=== PATIENT | male | born 1945 | race Two or more races ===

== ENCOUNTER 2022-05-08 20:34 | Outpatient (CLI) | payer MEDICARE, BC | END 2022-05-08 20:35 | disposition home or self-care (01) | LOC: SC 20:34 | PROVIDERS: ATTEND Nurse Practitioner Family | DX: G47.33 Obstructive sleep apnea (adult) (pediatric) (principal); G47.61 Periodic limb movement disorder | CPT/HCPCS: 95810 ==

== ENCOUNTER 2022-05-16 09:53 | Outpatient (CLI) | payer MEDICARE, BC ==
[2022-05-16 10:37] VITALS: BP 129/81
--- NOTE | 2022-05-16 10:37 | SLEEP CARE CONSULTATION ---
Information from patient questionnaire entered by Keerthi Gotti MA. I have reviewed and concur with the information entered by Keerthi Gotti MA. This document represents the service I personally performed and the decisions made by , Anastasiya Drummond ARNP. History of Present Illness Service Date and Time: 05/16/2022 0953 Accompanied by: daughter Initial [place] Sleepiness Scale score: 4 (04/25/2022) Current [place] Sleepiness Scale score: 3 (05/16/2022) Additional HPI information: GAETANO SINGLETARY returns for follow up with daughter Jolynn and results of the recently performed polysomnography. I explained the pathophysiology behind obstructive sleep apnea. We then spent quite a bit of time discussing different treatment options. For mild obstructive sleep apnea, surgery and oral appliance are alternatives to nasal CPAP therapy but in moderate or severe cases, nasal CPAP is the most effective and reliable treatment. Because apnea is primarily in supine position, then positional management ther apy could be effective. Methods discussed such as positioning with pillows to prevent supine sleep. I reviewed the impact of weight changes on sleep apnea and strongly recommended losing weight. After some discussion, the patient opted to go with the nasal CPAP therapy. Nasal autoCPAP set at 4-15 cmH20 will be ordered with rationale explained. A manual titration study will be ordered if unable to find optimal pressure with office adjustments. I explained how CPAP machine works and what to expect when using the machine. Using CPAP every night in order to get used to it was emphasized. Patient advised to put CPAP mask on before getting into bed so as not to fall asleep without CPAP. To assist acclimation to CPAP use, it could also be used for a short time during day while reading or watching TV. The patient was instructed to call the CPAP supplier to discuss any mechanical problem that may occur. If the mask given is uncomfortable or is difficult to keep on through the night even with adjustment, contact the CPAP supplier as many will replace with another mask style if notified before 30 days. If snoring or perceives is not getting enough air or too much air from the machine, notify this office. Patient counseled not drink alcohol less than 4 hours before bedtime as it can increase snoring and apnea. Patient was cautioned about risks of drowsy driving until sleepiness symptoms resolve. Sleep Study - Results Type of Sleep Study: Polysomnography (F/U POLY, 05/08/[address] [facility], POS,) Prior sleep studies: Yes Year and Where: has had 3 different studies over 20 years ago Polysomnography/Home Sleep Study results: IMPRESSION: The quality of the study is good. The patient had normal sleep efficiency. The sleep architecture was abnormal for sleep fragmentation and reduced amount of time spent in slow wave sleep (N3). Respiratory monitoring showed moderate obstructive sleep apnea-hypopnea (AHI = 21.9) associated with frequent arousals, oxyhemoglobin desaturation and mild hypoxia (kevin oxygen saturation of 85%). The patient did not sleep supine during this study. Snore was moderate to loud in intensity. There was moderate periodic leg movement of sleep contributing to the sleep fragmentation. Cardiac rhythm was normal sinus rhythm with occasional premature atrial contractions. No abnormal behavior (parasomnia) observed during the night. Allergies and Home Medications Known drug allergies: No (NKA) Drug allergies reviewed: Yes Home medication list reviewed: Yes (compounded testosterone) Allergy and home medication list: NKA VERIFIED BY Hina GOTTI, 05/16/2022 1000 Review of Systems Review of systems same as previous: No (Cubital tunnel syndrome) Physical Exam Vital signs obtained and entered by: Hina GOTTI CMA AAAZ Blood Pressure: 129/81 (R18, P68, RIGHT) Cuff size: wrist Heart Rate: 67 O2 Saturation: 96 (N95) Height: 5 ft 8 in Weight: 179 lb (CLOTHES) Body Mass Index: 27.2 BMI Classification: Overweight Neck circumference: 14 (INCHES) Impression and Plan 1. Obstructive Sleep Apnea-Hypopnea Syndrome, moderate, with lowest oxygen saturation of 85%. Obviously this is the cause of the patients symptoms of unrefreshed sleep, and excessive daytime sleepiness. Positive pressure therapy could benefit hypertension and cardiac disease (CHD). As mentioned above, the p atient will be started on nasal autoCPAP therapy with pressure set at 4-15 cmH2 O. Compliance guidelines also reviewed. A copy of compliance guidelines will be given for reference at check out. 2. Periodic limb movement, moderate, that did not fragment patients sleep. Periodic limb movement of sleep (PLMS) is characterized by episodes of repetitive limb movements that occur during sleep and usually involve the lower limbs. The etiology is unknown. Caffeine can aggravate PLMS and should be avoided. Sleep hygiene methods can also improve sleep as well as lifestyle roseline nges such as regular exercise. Patient was advised that no treatment is needed at this time. If symptoms increase, then further evaluation is indicated. * Nasal auto CPAP therapy, pressure at 4-15 cm H2O. * Attempt to lose weight. * Avoid alcohol consumption near bedtime. * Avoid supine sleep until using CPAP. * The patient is again cautioned about driving until sleepiness completely resolves. * Return one month after CPAP obtained. I will assess response to therapy and compliance at that time. Counseling Topics: Weight loss health impact Visit Type: In Office Time Spent with Patient (minutes): 28 Provider Statement: I spent 100% of the Face to Face Visit with the patient with greater than 50% spent counseling the patient and coordination of care.
== END 2022-05-16 09:54 | disposition home or self-care (01) ==
LOC: SC 09:53
PROVIDERS: ATTEND Nurse Practitioner Family
DX: G47.33 Obstructive sleep apnea (adult) (pediatric) (principal); G47.61 Periodic limb movement disorder; E66.3 Overweight; Z68.27 Body mass index [BMI] 27.0-27.9, adult
CPT/HCPCS: 99213; G0463; 99212

== ENCOUNTER 2022-10-15 09:58 | Outpatient (CLI) | payer MEDICARE, BC ==
--- NOTE | 2022-10-15 11:04 | SLEEP CARE CONSULTATION ---
Information from patient questionnaire entered by Debora Hancock. I have reviewed and concur with the information entered by Debora Hancock. This document represents the service I personally performed and the decisions made by me, Anastasiya Drummond ARNP. History of Present Illness Service Date and Time: 10/15/2022 0958 Previous diagnosis: Moderate, Obstructive Sleep Apnea-Hypopnea Syndrome AHI: 21.9 Reason for follow up: first compliance (SET UP 06/21/2022) Equipment type: CPAP (RESMED Airsense 10, s/u 06/2022; SD NEEDED FOR DOWNLOAD AND FOR CHANGES) Equipment obtained from: [employer] Mask style: Nasal pillows Mask brand: Resmed Backup mask available: Yes (old mask) Prior sleep studies: Yes Year and Where: has had 3 different studies over 20 years ago Type of Sleep Study: Polysomnography (F/U POLY, 05/08/2022 [facility], POS,) HPI additional information: GAETANO SINGLETARY was diagnosed to have moderate, AHI 21.9, obstructive sleep apnea-hypopnea syndrome and returned today for CPAP therapy first compliance follow-up. Sleep Study - Results Type of Sleep Study: Polysomnography (F/U POLY, 05/08/2022 [facility], POS,) Prior sleep studies: Yes Year and Where: has had 3 different studies over 20 years ago CPAP Compliance Data - Data Reviewed with Patient Average duration of nightly device use: 5 hours 45 minutes Compliance rate %: 58 (68/90 days used) Current pressure setting (cmH2O): 4-18 (median 10.5, avg 14.4, max 15.4) Average residual AHI: 21.7 Central apnea: 5.4 Obstructive apnea: 8.3 Hypopnea: 2.7 Subjective Missed days of use due to: reports: illness (sinus surgery, could not use CPAP for 2 weeks) Patient concerns: reports: mask leak noise, dry mouth, nose, throat, other (waking up several times a night, unknown reasons). denies: aerophagia, mask discomfort, air blowing in eyes, condensation in mask/hose, nasal congestion, epistaxis Observed to snore while using device: No Current pressure setting perceived as: comfortable On therapy, patient: reports: drowsiness while driving, other (having too many wakeups to get better sleep.) Initial [place] Sleepiness Scale score: 4 (04/25/2022) Current [place] Sleepiness Scale score: 11 (10/15/22) Allergies and Home Medications Drug allergies reviewed: Yes (NKDA) Home medication list reviewed: Yes (Melatonin) Review of Systems Review of systems same as previous: No (Cubital Tunnel syndrome, R & L; sinus surgery) Physical Exam Vital signs obtained and entered by: DEBORA Corona MA Blood Pressure: 124/78 (LEFT ARM) Cuff size: regular Heart Rate: 95 O2 Saturation: 97 Height: 5 ft 8 in Weight: 189 lb 6.4 oz Body Mass Index: 28.8 BMI Classification: Overweight Impression and Plan 1. Obstructive Sleep Apnea-Hypopnea Syndrome, moderate, with fair treatment compliance and poor apnea control. Patient comes in very concerned that he is still waking up several times at night when using the CPAP. He states he had to have sinus surgery and was unable to use his CPAP for 2 weeks while he was healing and he was able to sleep through the night. He restarted using his CPAP and started waking up again 4-5 times a night. Patient states he just wants to be able to maintain sleep 2-3 nights a week. I reviewed his therapy data and it shows an elevated AHI at 21.7 which is not much different than his original AHI at his sleep study done in 2020. He did not return for compliance follow-up after being set up with the CPAP. Obviously, he is not getting significant improvement of his sleep apnea on the CPAP machine according to his therapy rep ort. The patients pressure will be changed to autoCPAP 12-20 cmH20 for elevation of residual AHI. Patient advised to contact me if pressure change is uncomfortable so that it can be adjusted. Goals for apnea control discussed. I also discussed with patient the possibility of doing a titration study, if we are not able to adjust pressures well enough to control his sleep apnea. He voiced understanding but does not want to go through another study at this time. Patient's apnea severity and rationale for treatment to reduce apnea, improve sleep quality and reduce cardiovascular and cerebrovascular events was reviewed. I also reviewed the benefit of consistent device use of CPAP for hypertension and cardiac disease (CHD). 2. Overweight, unspecified. Currently patients BMI is 28.8. Obesity increases the risk of apnea, CPAP pressure requirements and overall health risks especially cardiovascular and diabetes. Thus patient is advised to lose weight. 3. Insomnia, sleep maintenance. Patient states he regularly is multiple wake ups at night. He is able to go to sleep within a few minutes but then will wake up 4-5 times a night. In order to help him to get better night sleep, we are going to trial a Zolpidem 5 mg a few nights a week while we adjust his pressure to improve overall residual AHI. He was instructed not to take with his Seroquel with this medication since this is also a [employer] depressant. We adverse reactions to medications and when to stop taking them. He voiced understanding of instructions. * Change auto CPAP pressure to 12-20 cmH2O * Zolpidem 5 mg, prn nightly for sleep * Notify me if snoring with mask or feeling that the pressure is too much or too little * Attempt to lose weight * Call this office if any problems using CPAP * Return for follow up in 1-2 months, or sooner if concerns arise Counseling Topics: Spare mask, Weight loss health impact Visit Type: In Office Time Spent with Patient (minutes): 26 Provider Statement: I spent 100% of the Face to Face Visit with the patient with greater than 50% spent counseling the patient and coordination of care.
[2022-10-15 11:05] VITALS: BP 124/78
== END 2022-10-15 09:59 | disposition home or self-care (01) ==
LOC: SC 09:58
PROVIDERS: ATTEND Nurse Practitioner Family
DX: G47.33 Obstructive sleep apnea (adult) (pediatric) (principal); E66.3 Overweight; Z68.28 Body mass index [BMI] 28.0-28.9, adult; G47.00 Insomnia, unspecified
CPT/HCPCS: 99213; G0463; 99212

== ENCOUNTER 2022-11-27 13:18 | Outpatient (CLI) | payer MEDICARE, BC ==
--- NOTE | 2022-11-27 14:06 | SLEEP CARE CONSULTATION ---
Information from patient questionnaire entered by Debora Hancock. I have reviewed and concur with the information entered by Debora Hancock. This document represents the service I personally performed and the decisions made by , Anastasiya Drummond ARNP. History of Present Illness Service Date and Time: 11/27/2022 1318 Previous diagnosis: Moderate, Obstructive Sleep Apnea-Hypopnea Syndrome AHI: 21.9 Reason for follow up: other (SIX WEEK F/U) Equipment type: CPAP (RESMED Airsense 10, s/u 06/2022; SD NEEDED FOR DOWNLOAD AND FOR CHANGES) Equipment obtained from: Other ([employer], as needed) Mask style: Nasal pillows Backup mask available: No (has extra pillows but not mask) Last cushion change: 2 weeks Prior sleep studies: Yes Year and Where: has had 3 different studies over 20 years ago Type of Sleep Study: Polysomnography (F/U POLY, 05/08/2022 [facility], POS,) HPI additional information: GAETANO SINGLETARY was diagnosed to have moderate, AHI 21.9, obstructive sleep apnea-hypopnea syndrome and returned today for CPAP therapy six weeks follow-up. Sleep Study - Results Type of Sleep Study: Polysomnography (F/U POLY, 05/08/2022 [facility], POS,) Prior sleep studies: Yes Year and Where: has had 3 different studies over 20 years ago CPAP Compliance Data - Data Reviewed with Patient Average duration of nightly device use: 4 hours 37 minutes Compliance rate %: 57 Current pressure setting (cmH2O): 12-20 Average residual AHI: 18.8 (unknown 6.9) Central apnea: 4.0 Obstructive apnea: 5.2 Hypopnea: 2.6 Compliance data discussion: He states that he only sleeps for about 2 hours, the rest of the time in the mask he is awake. Subjective Missed days of use due to: reports: other (insomnia) Patient concerns: reports: mask leak noise, dry mouth, nose, throat (dry mouth). denies: aerophagia, mask discomfort, air blowing in eyes, condensation in mask/hose, nasal congestion, epistaxis Observed to snore while using device: No Current pressure setting perceived as: comfortable On therapy, patient: reports: other (not feeling like he is sleeping better with CPAP) Initial [place] Sleepiness Scale score: 4 (04/25/2022) Current [place] Sleepiness Scale score: 7 (11/27/22) Allergies and Home Medications Known drug allergies: No Drug allergies reviewed: Yes Home medication list reviewed: Yes (Ambien 5 mg, prn ) Review of Systems Review of systems same as previous: Yes (no changes) Physical Exam Vital signs obtained and entered by: DEBORA Corona MA Blood Pressure: 110/70 (LEFT ARM) Cuff size: regular Heart Rate: 63 O2 Saturation: 96 Height: 5 ft 8 in Weight: 191 lb 12.8 oz Body Mass Index: 29.1 BMI Classification: Overweight Impression and Plan 1. Obstructive Sleep Apnea-Hypopnea Syndrome, moderate, with fair treatment compliance and fair apnea control with elevated residual AHI. On CPAP therapy, the patient does not feel he gets better sleep, he thinks he sleeps better without it. He is still more concerned about getting more sleep at night. He wears the CPAP because it makes his daughter happy. He has an elevated residual AHI as well with his pressure setting at 12-20 cmH2O. We discussed and agreed upon a titration study to see if we can find pressure setting that will adequately control his sleep apnea. He agreed to go to [facility] since we do not have titration machines in our sleep lab currently. I will follow up with him after the study. Patient's apnea severity and rationale for treatment to reduce apnea, improve sleep quality and reduce cardiovascular and cerebrovascular events was reviewed. I also reviewed the benefit of consistent device use of CPAP for hypertension and cardiac disease (CHD). 2. Overweight, unspecified. Currently patients BMI is 29.1. Obesity increases the risk of apnea, CPAP pressure requirements and overall health risks especially cardiovascular and diabetes. Thus patient is advised to lose weight. 3. Insomnia, sleep maintenance. He tried the 5 mg Ambien with little improvement of his sleep. He increased his dose to 10 mg and did get one night with 5-6 hours of sleep but feels he might need a stronger dose because he was not able to sleep more than 2-3 hours since then. I will change his prescription to Ambien ER 12.5 mg to see if this will help him maintain sleep for longer periods of time. He has not been having any adverse effects from the medication. * Continue auto CPAP pressure at 12-20 cmH2O * Titration study * Ambien ER 12.5 mg, nightly, prn for sleep * Notify me if snoring with mask or feeling that the pressure is too much or too little * Attempt to lose weight * Call this office if any problems using CPAP * Return for follow up after titration study, or sooner if concerns arise Counseling Topics: Spare mask, Weight loss health impact Visit Type: In Office Time Spent with Patient (minutes): 22 Provider Statement: I spent 100% of the Face to Face Visit with the patient with greater than 50% spent counseling the patient and coordination of care.
[2022-11-27 14:23] VITALS: BP 110/70
== END 2022-11-27 13:19 | disposition home or self-care (01) ==
LOC: SC 13:18
PROVIDERS: ATTEND Nurse Practitioner Family
DX: G47.33 Obstructive sleep apnea (adult) (pediatric) (principal); E66.3 Overweight; Z68.29 Body mass index [BMI] 29.0-29.9, adult
CPT/HCPCS: 99213; G0463; 99212

== ENCOUNTER 2023-02-12 14:29 | Outpatient (CLI) | payer MEDICARE, BC ==
--- NOTE | 2023-02-12 14:25 | SLEEP CARE CONSULTATION ---
Information from patient questionnaire entered by Allyssa Hancock. I have reviewed and concur with the information entered by Allyssa Hancock. This document represents the service I personally performed and the decisions made by , Anastasiya Drummond ARNP. History of Present Illness Service Date and Time: 02/12/2023 1400 Initial [place] Sleepiness Scale score: 4 (04/25/2022) Current [place] Sleepiness Scale score: 5 (02/12/23) Additional HPI information: GAETANO SINGLETARY returns via telehealth visit for follow up of the sleep study with a manual CPAP titration study performed on 01/08/2023. The patient was informed of the following polysomnography findings: CPAP pressure at 12 cmH20 is almost adequate to control his sleep apnea. Sleep Study - Results Type of Sleep Study: Polysomnography (TITRATION STUDY F/U) Prior sleep studies: Yes Year and Where: has had 3 different studies over 20 years ago Polysomnography/Home Sleep Study results: IMPRESSION: The quality of the study is good. CPAP was initiated at S cmH20 and titrated up to CPAP at 12 cmH20. CPAP at 12 cmH10 appeared to be almost adequate (AHi of 8.6 per hour on the pressure), There was REM sleep on the pressure. The patient did not sleep supine during this study. Oxygen saturation was minimally low. Lower CPAP settings allowed more frequent residual rospiratory events. The patient appeared to have tolerated positive airway pressure therapy fairly well. The patient's sleep efficiency was reduced due to prolonged awakenings in the first half of the night. The sleep architecture was abnormal for sleep fragmentation and lack of slow wave sleep. There was no significant periodic leg movement of sleep. Cardiac rhythm was normal sinus rhythm without significant arrhythmia. No abnonnal behavior (parasomnia) observed during the night. Allergies and Home Medications Known drug allergies: No Drug allergies reviewed: Yes Home medication list reviewed: Yes (no changes) Allergy and home medication list: Allergies No Known Drug Allergies Allergy Review of Systems Review of systems same as previous: No (elbow surgery ) Physical Exam Vital signs obtained and entered by: ALLYSSA Corona MA Height: 5 ft 8 in (PER PT) Weight: 175 lb (PER PT) Body Mass Index: 26.6 BMI Classification: Overweight Impression and Plan 1. Obstructive Sleep Apnea-Hypopnea Syndrome, moderate. He follows up today with titration study done at [facility]. The results show almost adequately controlled at 12.0 cmH2O and recommended 10-15 cmH2O setting for his device. The patients pressure will be changed to autoCPAP 12-15 cmH20. Patient advised to contact me if pressure change is uncomfortable so that it can be adjusted. Goals for apnea control discussed. Patient's apnea severity and rationale for treatment to reduce apnea, improve sleep quality and reduce cardiovascular and cerebrovascular events was reviewed. I also reviewed the benefit of consistent device use of CPAP for hypertension and cardiac disease. 2. Overweight, unspecified. Currently patients BMI is 26.6. Obesity increases the risk of apnea, CPAP pressure requirements and overall health risks especially cardiovascular and diabetes. Thus patient is advised to lose weight. 3. Insomnia, sleep maintenance. Patient states that he still cannot sleep th rough the night. He will wake up and record his wake ups throughout the night. He has been doing this for a year. He would like to address this because he is still fatigued during the day even with using his CPAP nightly. He feels this has not been addressed along with the sleep apnea. I will have him fill out a sleep diary for 2 weeks and have him follow up in office for insomnia. * Change auto CPAP pressure to 12-15 cmH2O * 2 week sleep diary to address insomnia issues * Notify me if snoring with mask or feeling that the pressure is too much or too little * Attempt to lose weight * Call this office if any problems using CPAP * Return for follow up in a month for insomnia, or sooner if concerns arise Counseling Topics: Spare mask, Weight loss health impact Follow up with Sleep Care in: other (for insomnia) Visit Type: Telehealth Phone Video Type: [place] Patient Location: Home Location of Provider: Office Patient agrees and consents to this telehealth visit type: Yes Patient agrees to have their insurance billed: Yes Time Spent with Patient (minutes): 24 Provider Statement: I spent 100% of the Telehealth Phone Call with the patient w ith greater than 50% spent counseling the patient and coordination of care.
== END 2023-02-12 14:30 | disposition home or self-care (01) ==
LOC: SC 14:29
PROVIDERS: ATTEND Nurse Practitioner Family
DX: G47.33 Obstructive sleep apnea (adult) (pediatric) (principal); E66.3 Overweight; Z68.26 Body mass index [BMI] 26.0-26.9, adult; G47.00 Insomnia, unspecified

== ENCOUNTER 2023-03-24 15:03 | Outpatient (CLI) | payer MEDICARE, BC ==
--- NOTE | 2023-03-24 22:44 | SLEEP CARE CONSULTATION ---
Information from patient questionnaire entered by Debora Hancock. I have reviewed and concur with the information entered by Debora Hancock. This document represents the service I personally performed and the decisions made by me, Juani Tovar MD, [facility]. History of Present Illness Service Date and Time: 03/24/2023 1503 Previous diagnosis: Moderate, Obstructive Sleep Apnea-Hypopnea Syndrome AHI: 21.9 Reason for follow up: other (2 MONTH F/U INSOMNIA) Equipment type: CPAP (RESMED Airsense 10, s/u 06/2022; SD NEEDED FOR DOWNLOAD AND FOR CHANGES) Equipment obtained from: Other ([employer], as needed) Mask style: Nasal pillows Prior sleep studies: Yes Year and Where: has had 3 different studies over 20 years ago Type of Sleep Study: Polysomnography (TITRATION STUDY F/U) HPI additional information: Mr. Palafox was diagnosed to have moderate obstructive sleep apnea-hypopnea syndrome and returns today for follow up of CPAP therapy. The patient purchased the device from [employer] and was fitted with nasal pillows. He uses the device nightly and all through the night. The compliance report shows that he uses the device 30 nights out of the past 30 nights, averaging 4.8 hours a night. The > 4 hour compliance rate for the past 30 days is 73%. He complains of no particular problem with the device such as soreness on the face, dry nose, epistaxis, nasal congestion or headache. He thinks that the pressure of 12 - 20 cmH2O is comfortable. On the CPAP therapy he notices improvement in his sleep quality, and that he wakes up feeling fresher in the morning and more awake/alert during the day. His notices no snore at all. [place] Sleepiness Scale score is 9. The average residual AHI is 11.2; and average air leak is 15.7 L/minute. The 90th percentile pressure is 15 cmH2O. The also complains of insomnia involving frequent awakenings at night. I reviewed his sleep diary of the past month and he recorded 0 3 awakenings at night. He also has his own diary that is quite thick. He says he turns on the light at night and records all the awakenings in the middle of the night. He goes to bed around 11 pm to midnight and gets up 7 8 am. He naps while watching TV almost every day but only for 10 minutes at a time. He took trazodone and temazepam in the past. Now he takes zolpidem 12.5 mg about once a week. He has a daughter who is a pediatric pulmonary/sleep physician. Sleep Study - Results Type of Sleep Study: Polysomnography (TITRATION STUDY F/U) Prior sleep studies: Yes Year and Where: has had 3 different studies over 20 years ago Subjective Initial [place] Sleepiness Scale score: 4 (04/25/2022) Current [place] Sleepiness Scale score: 9 (03/24/23) Allergies and Home Medications Drug allergies reviewed: Yes Home medication list reviewed: Yes Allergy and home medication list: Allergies No Known Drug Allergies Allergy (Verified 03/21/23 10:44) Review of Systems Review of systems same as previous: Yes Physical Exam Vital signs obtained and entered by: DEBORA Corona MA Blood Pressure: 136/80 (LEFT ARM) Cuff size: regular Heart Rate: 81 O2 Saturation: 94 Height: 5 ft 8 in (PER PT) Weight: 187 lb 3.2 oz Body Mass Index: 28.4 BMI Classification: Overweight Impression and Plan IMPRESSION: 1. Obstructive Sleep Apnea-Hypopnea Syndrome, moderate (AHI was 21.9), with the patient having good compliance. The pressure setting is not quite optimal. However, the high residual AHI could be due to air leaking from the system. I will try a lower pressure setting to first reduce the air leak. He also complains of the pressure being too high. 2. Insomnia, probably psychophysiological. The patient is overly concerned of waking up 1 3 times a night. He would record of the awakenings in his logbook in the middle of the night. I reassured him that it is quite normal, and he should refrain from looking at the clock and turning on the light to write down the time. Taking zolpidem once a week is not of a concern. I discourage him to take it anymore often. PLAN: 1. AutoCPAP reduced to 6 - 12 cm H2O on the memory card. 2. Maintain a regular wake up time and spend no more than 8 hours in bed at night. Avoid naps. 3. Return for a follow up in one month. Adjust device pressure to (cmH2O): 6 - 12 Follow up with Sleep Care in: 1-2 months Visit Type: In Office Time Spent with Patient (minutes): 25 Provider Statement: I spent 100% of the Face to Face Visit with the patient with greater than 50% spent counseling the patient and coordination of care.
[2023-03-24 22:46] VITALS: BP 136/80
== END 2023-03-24 15:04 | disposition home or self-care (01) ==
LOC: SC 15:03
PROVIDERS: ATTEND Internal Medicine Pulmonary Disease
DX: G47.33 Obstructive sleep apnea (adult) (pediatric) (principal); G47.00 Insomnia, unspecified; E66.3 Overweight; Z68.28 Body mass index [BMI] 28.0-28.9, adult
CPT/HCPCS: 99213; G0463; 99212

== ENCOUNTER 2023-04-28 13:31 | Outpatient (CLI) | payer MEDICARE, BC ==
--- NOTE | 2023-04-28 21:28 | SLEEP CARE CONSULTATION ---
Information from patient questionnaire entered by Debora Hancock. I have reviewed and concur with the information entered by Debora Hancock. This document represents the service I personally performed and the decisions made by me, Juani Tovar MD, [facility]. History of Present Illness Service Date and Time: 04/28/2023 1331 Previous diagnosis: Moderate, Obstructive Sleep Apnea-Hypopnea Syndrome AHI: 21.9 Reason for follow up: one month (F/U) Equipment type: CPAP (RESMED Airsense 10, s/u 06/2022; SD NEEDED FOR DOWNLOAD AND FOR CHANGES) Equipment obtained from: Other ([email or web address], as needed) Mask style: Nasal pillows Prior sleep studies: Yes Year and Where: has had 3 different studies over 20 years ago Type of Sleep Study: Polysomnography (TITRATION STUDY F/U) HPI additional information: Mr. Palafox was diagnosed to have moderate obstructive sleep apnea-hypopnea syndrome and returns today for follow up of CPAP therapy. The patient purchased the device from [employer] and was fitted with nasal pillows. He uses the device nightly and all through the night. The compliance report shows that he uses the device 21 nights out of the past 30 nights, averaging 4.7 hours a night. The > 4 hour compliance rate for the past 30 days is 47%. He complains of mouth dr yness. He thinks that the pressure of 6 16 (was 12 20) cmH2O is comfortable. He does know if he still snores because he sleeps in a separate bedroom. [place] Sleepiness Scale score is 4. The average residual AHI is 13.7 (was 11.2); and average air leak is 6.5 L/minute. The 90th percentile pressure is 11.3 cmH2O. Sleep Study - Results Type of Sleep Study: Polysomnography (TITRATION STUDY F/U) Prior sleep studies: Yes Year and Where: has had 3 different studies over 20 years ago Subjective Initial [place] Sleepiness Scale score: 4 (04/25/2022) Current [place] Sleepiness Scale score: 4 (04/28/23) Allergies and Home Medications Drug allergies reviewed: Yes Home medication list reviewed: Yes Allergy and home medication list: Allergies No Known Drug Allergies Allergy (Verified 04/25/23 10:54) Review of Systems Review of systems same as previous: Yes (ANGIOPLASTY, 2 STENTS ) Physical Exam Vital signs obtained and entered by: DEBORA Corona MA Blood Pressure: 98/62 (LEFT ARM) Cuff size: regular Heart Rate: 93 O2 Saturation: 97 Height: 5 ft 8 in (PER PT) Weight: 189 lb 12.8 oz Body Mass Index: 28.8 BMI Classification: Overweight Impression and Plan IMPRESSION: 1. Obstructive Sleep Apnea-Hypopnea Syndrome, moderate (AHI was 21.9), with the patient having [id number] compliance. The pressure setting is not quite optimal. His manual CPAP/BiPAP titration study at [facility] showed 12 cmH2O to be almost optimal. I will raise the starting pressure. PLAN: 1. AutoCPAP raised to 10 - 16 cm H2O on the memory card. 2. Humidity raised from 4 to 8 for mouth dryness. 3. Return for a follow up in one month. Follow up with Sleep Care in: 1-2 months Visit Type: In Office Time Spent with Patient (minutes): 15 Provider Statement: I spent 100% of the Face to Face Visit with the patient with greater than 50% spent counseling the patient and coordination of care.
[2023-04-28 21:37] VITALS: BP 98/62; O2SAT 97
== END 2023-04-28 13:32 | disposition home or self-care (01) ==
LOC: SC 13:31
PROVIDERS: ATTEND Internal Medicine Pulmonary Disease
DX: G47.33 Obstructive sleep apnea (adult) (pediatric) (principal); E66.3 Overweight; Z68.28 Body mass index [BMI] 28.0-28.9, adult
CPT/HCPCS: 99212; G0463

== ENCOUNTER 2023-12-22 10:57 | Day surgery (SDC) | payer MEDICARE, BC ==
[2023-12-22] MEDS: LACTATED RINGERS 1,000 ML IV ONE (11:11)
--- NOTE | 2023-12-22 11:12 | ANESTHESIA ---
Pre-Anesthesia VS, & Labs - Diagnosis positive cologuard - Procedure colonoscopy Height: 5 ft 8 in Weight (kg): 82.1 kg Body Mass Index: 27.5 BMI Classification: Overweight - NPO >8 hours Last Fluid Intake: am prep - Lab Results Lab results reviewed: Yes Home Medications and Allergies Home Medications: Ambulatory Orders Aspirin [[place] Aspirin] 81 mg PO DAILY 12/19/23 Doxazosin [Cardura] 4 mg PO DAILY 12/19/23 Famotidine [Acid-Pep] 20 mg PO DAILY 12/19/23 Metoprolol Succinate [Toprol Xl] 50 mg PO DAILY 12/19/23 [place]-3/Dha/Epa/Fish Oil [Fish Oil 1,000 mg Softgel] 1 each PO DAILY 12/19/23 RX: Atorvastatin Calcium 40 mg PO DAILY 12/19/23 RX: Multivitamin 1 each PO DAILY 12/19/23 Zolpidem [Ambien] 5 mg PO HS 11/27/22 Clopidogrel Bisulfate [Plavix] 75 mg PO DAILY 04/28/23 Gabapentin [Neurontin] 600 mg PO HS 06/09/23 Aspirin [[place] Aspirin] 81 mg PO DAILY 12/19/23 Atorvastatin Calcium 40 mg PO DAILY 12/19/23 Doxazosin [Cardura] 4 mg PO DAILY 12/19/23 Famotidine [Acid-Pep] 20 mg PO DAILY 12/19/23 Metoprolol Succinate [Toprol Xl] 50 mg PO DAILY 12/19/23 Multivitamin 1 each PO DAILY 12/19/23 [place]-3/Dha/Epa/Fish Oil [Fish Oil 1,000 mg Softgel] 1 each PO DAILY 12/19/23 Allergies/Adverse Reactions: Allergies Allergy/AdvReac Type Severity Reaction Status Date / Time No Known Drug Allergies Allergy Verified 06/09/23 14:24 Anes History & Medical History - Anesthetic History Anesthesia Complications: reports: No previous complications Family history of Anesthesia Complications: Denies Family history of Malignant Hyperthermia: Denies - Medical History Cardiovascular: reports: Hypertension, High cholesterol, Coronary artery disease, Other Pulmonary: reports: Sleep apnea Gastrointestinal: reports: GERD, Colon polyps Urinary: reports: Other Musculoskeletal: reports: Osteoarthritis, Scoliosis, Chronic back pain Endocrine/Autoimmune: reports: None Skin: reports: None - Surgical History General: reports: Appendectomy, Colonoscopy Eyes Ears Nose Throat (EENT): reports: Cataracts Cardiothoracic: reports: Coronary stent (03/2023, patient has been off Plavix since June 2023), Cardiac catheterization, Angioplasty, Other Orthopedic: reports: Knee replacement, Spine surgery, Other Exam General: Alert, Oriented x3, Cooperative Dental: WNL Mouth Openin Fingerbreadth Neck Mobility: Normal Mallampati classification: II Thyromental Distance: 4-6 cm Respiratory: Lungs clear, Normal breath sounds, No respiratory distress, Other (c/o recewnt SOB with activity) Cardiovascular: Other (new onset AF with RBBB, pt denies any history of arhythmia) Neurological: Normal speech Mental/Cognitive Status: Alert/Oriented X3, Normal for patient Cognitive Status: Within normal limits Plan Anesthesia Type: Total IV Consent for Procedure(s) Verified and Reviewed: Yes Code Status: Attempt Resuscitation ASA classification: 3-Severe systemic disease Is this case an emergency?: No
[2023-12-22 12:01] VITALS: BP 130/76; O2SAT 93
== END 2023-12-22 10:58 | disposition home or self-care (01) ==
LOC: SDS 10:57
PROVIDERS: ATTEND Surgery
DX: R19.5 Other fecal abnormalities (principal); Z53.09 Procedure and treatment not carried out because of other contraindication; I48.91 Unspecified atrial fibrillation; R06.02 Shortness of breath; I10 Essential (primary) hypertension; I25.10 Atherosclerotic heart disease of native coronary artery without angina pectoris; G47.30 Sleep apnea, unspecified; E78.00 Pure hypercholesterolemia, unspecified
CPT/HCPCS: 93005; J7120

== ENCOUNTER 2023-12-22 12:00 | Emergency (ER) | payer MEDICARE, BC ==
--- NOTE | 2023-12-22 12:18 | ED Physician Documentation ---
History of Present Illness - Stated complaint Stated Complaint: NEW ONSET AFIB - History obtained from History obtained from: Patient - Additonal information Additional information: 78-year-old gentleman with history of coronary disease, stented last year, no longer on clopidogrel or aspirin but does take metoprolol, he is unsure of the dose. He is been feeling a little tired lately but nothing alarming. And today he had a scheduled colonoscopy. On check-in he was noted to be in A-fib and the procedure was canceled and he was referred to the emergency department. He denies chest pain, trouble breathing, or palpitations. He has no history of arrhythmias. PD PAST MEDICAL HISTORY - Past Medical History Cardiovascular: Hypertension, High cholesterol, Coronary artery disease, Other Respiratory: Sleep apnea Endocrine/Autoimmune: None GI: GERD, Colon polyps : Other HEENT: None Psych: None Musculoskeletal: Osteoarthritis, Scoliosis, Chronic back pain Derm: None - Past Surgical History General: Appendectomy, Colonoscopy Ortho: Knee replacement, Spine surgery, Other Cardiovascular: Coronary stent, Cardiac catheterization, Angioplasty, Other HEENT: Cataracts - Present Medications Home Medications: Ambulatory Orders Medication Instructions Recorded Confirmed Zolpidem [Ambien] 5 mg PO HS 11/27/22 12/19/23 Clopidogrel Bisulfate [Plavix] 75 mg PO DAILY 04/28/23 12/19/23 Gabapentin [Neurontin] 600 mg PO HS 06/09/23 12/19/23 Aspirin [[place] Aspirin] 81 mg PO DAILY 12/19/23 12/19/23 Atorvastatin Calcium 40 mg PO DAILY 12/19/23 12/19/23 Doxazosin [Cardura] 4 mg PO DAILY 12/19/23 12/19/23 Famotidine [Acid-Pep] 20 mg PO DAILY 12/19/23 12/19/23 Metoprolol Succinate [Toprol Xl] 50 mg PO DAILY 12/19/23 12/19/23 Multivitamin 1 each PO DAILY 12/19/23 12/19/23 [place]-3/Dha/Epa/Fish Oil [Fish Oil 1 each PO DAILY 12/19/23 12/19/23 1,000 mg Softgel] Rivaroxaban [Xarelto] 20 mg PO DAILY #30 tablet 12/22/23 - Allergies Allergies/Adverse Reactions: Allergies Allergy/AdvReac Type Severity Reaction Status Date / Time No Known Drug Allergies Allergy Verified 06/09/23 14:24 PD ED PE NORMAL - Vitals Vital signs reviewed: Yes - General General: Alert and oriented X 3, No acute distress - Cardiac Cardiac: Other (Irregularly irregular but rate controlled, no murmur) - Respiratory Respiratory: No respiratory distress, Clear bilaterally - Abdomen Abdomen: Non tender - Derm Derm: Normal color, Warm and dry - Neuro Neuro: Alert and oriented X 3, Normal speech Results - Vitals Vitals: Vital Signs - 24 hr 12/22/23 12/22/23 12:07 12:19 Temperature 37.0 C Heart Rate 112 H Respiratory 130 H Rate Blood Pressure 130/90 H [Right] O2 Saturation 96 Oxygen O2 Source Room air - EKG (time done) 1230 EKG releavant findings:: EKG personally interpreted by author of this note. Relevant findings are: Rate: Rate (enter#) (110) Rhythm: Atrial fibrillation [place]: Normal Intervals: RBBB Ischemia: Non specific changes. No: ST elevation c/w ischemia Compare to prior EKG: Old EKG unavailable Computer interpretation: Agree with computer - Labs Labs: Laboratory Tests 12/22/23 12/22/23 12:24 12:24 WBC 7.5 RBC 6.93 H Hgb 19.8 H Hct 60.1 H MCV 86.7 MCH 28.6 MCHC 32.9 RDW 13.8 Plt Count 115 L MPV 8.8 Neut # (Auto) 6.3 Lymph # (Auto) 0.8 L [place] # (Auto) 0.4 Eos # (Auto) 0.0 Baso # (Auto) 0.0 Absolute Nucleated RBC 0.00 Nucleated RBC % 0.0 Sodium 140 Potassium 4.3 Chloride 107 Carbon Dioxide 25 Anion Gap 8.0 BUN 14 Creatinine 0.9 Estimated GFR (MDRD) 82 L Glucose 118 H Calcium 9.7 Magnesium 1.9 Total Bilirubin 2.2 H AST 29 ALT 29 Alkaline Phosphatase 47 Total Protein 6.7 Albumin 4.2 Globulin 2.5 Albumin/Globulin Ratio 1.7 TSH 1.67 PD Medical Decision Making - ED course ED course: 78-year-old gentleman with A-fib. The acuity of it is not clear, he has no history of it per se, but he has no symptoms and it was found today when he was being checked in for a routine screening colonoscopy. As such, it is not appropriate to offer him the ED cardioversion. He is rate controlled on his current dose of metoprolol. Will check some labs and observe him for a bit and make sure he stays rate controlled. We discussed starting a DOAC and he would like to do so pending follow-up with his livestock trucker. Subsequent workup demonstrated normal TSH. CBC did show polycythemia. He was not aware of this in the past labs and I do not have prior labs to compare with. He does have a history of HUMBERTO and is supposed to be using CPAP but has been noncompliant. Discussed with him nighttime hypoxemia due to noncompliance with CPAP may be causing the polycythemia and he should restart his CPAP but would need at least a recheck in his red cell counts with potential hematology follow- up for same. Also had mild elevation in bilirubin of unclear chronicity and follow-up for that was discussed as well. [id number] score 3 Prior stents were done in March so it has been greater than 6 months since he was stented. As such he can safely stop his Plavix but was recommended he continue baby aspirin in addition to the Xarelto we are starting. Departure - Departure Disposition: Home, Self Care Clinical Impression: Atrial fibrillation Qualifiers: Atrial fibrillation type: unspecified Qualified Code(s): I48.91 - Unspecified atrial fibrillation Condition: Good Record reviewed to determine appropriate education?: Yes Instructions: Atrial Fibrillation Dc Prescriptions: Rivaroxaban [Xarelto] 20 mg PO DAILY #30 tablet Comments: You are found today to be in new onset atrial fibrillation. We did not offer cardioversion as it is not clear how long you have been in it since you are generally asymptomatic from it. Your heart rate is controlled and you should certainly continue your metoprolol. We did check some labs, and we did note your hemoglobin to be 19.8 which is high, the opposite of anemia. Also your bilirubin was mildly elevated at 2.2. These should be mention to your primary care physician with whom you should follow-up with for the next available appointment. You should also follow-up with your livestock trucker for the next available appointment.
[2023-12-22 12:31] LABS: BASOPHILS % (AUTO) 0.4 %; EOSINOPHILS % (AUTO) 0.1 %; HCT - HEMATOCRIT 60.1 % (42.0-52.0); HGB - HEMOGLOBIN 19.8 g/dL (14.0-18.0); LYMPHOCYTES # (AUTO) 0.8 10^3/uL (1.5-3.5); LYMPHOCYTES % (AUTO) 10.4 %; MEAN CORPUSCULAR HEMOGLOBIN 28.6 pg (27.0-31.0); MEAN CORPUSCULAR HGB CONC 32.9 g/dL (32.0-36.0); MEAN CORPUSCULAR VOLUME 86.7 fL (80.0-94.0); MEAN PLATELET VOLUME 8.8 fL (7.4-11.4); MONOCYTES # (AUTO) 0.4 10^3/uL (0.0-1.0); MONOCYTES % (AUTO) 4.9 %; NEUTROPHILS # (AUTO) 6.3 10^3/uL (1.5-6.6); NEUTROPHILS % (AUTO) 83.9 %; PLT - PLATELET COUNT 115 10^3/uL (130-450); RED BLOOD COUNT 6.93 10^6/uL (4.70-6.10); RED CELL DISTRIBUTION WIDTH 13.8 % (12.0-15.0); WHITE BLOOD COUNT 7.5 x10^3/uL (4.8-10.8)
[2023-12-22 12:48] LABS: ALBUMIN 4.2 g/dL (3.2-5.5); ALBUMIN/GLOBULIN RATIO 1.7 (1.0-2.2); BILIRUBIN,TOTAL 2.2 mg/dL (0.2-1.0); CALCIUM 9.7 mg/dL (8.5-10.3); CREATININE 0.9 mg/dL (0.6-1.3); MAGNESIUM 1.9 mg/dL (1.7-2.3); POTASSIUM 4.3 mmol/L (3.5-4.5); TOTAL PROTEIN 6.7 g/dL (6.4-8.9)
[2023-12-22 13:01] LABS: THYROID STIMULATING HORMONE 1.67 uIU/mL (0.34-5.60)
[2023-12-22 13:49] VITALS: BP 149/89; O2SAT 94
== END 2023-12-22 13:45 | disposition home or self-care (01) ==
LOC: ED 12:00
DX: I48.91 Unspecified atrial fibrillation (principal); I10 Essential (primary) hypertension; E78.00 Pure hypercholesterolemia, unspecified; Z79.02 Long term (current) use of antithrombotics/antiplatelets; Z79.82 Long term (current) use of aspirin; Z79.899 Other long term (current) drug therapy; Z79.01 Long term (current) use of anticoagulants
CPT/HCPCS: 36415; 80053; 83735; 84443; 85025; 93005; 99284

== ENCOUNTER 2024-01-07 10:40 | Outpatient (CLI) | payer MEDICARE, BC ==
--- NOTE | 2024-01-07 15:00 | CT Report ---
PROCEDURE: Lung Cancer Screen INDICATIONS: FORMER HEAVY SMOKER TECHNIQUE: A CT scan of the chest was performed. Intravenous contrast media was not administered. Images were re corded and evaluated at appropriate window settings. Reformats: axial MIP of the chest, coronal and s agittal. For radiation dose reduction, the following was used: automated exposure control, adjustment of mA and/or kV according to patient size. COMPARISON: None. FINDINGS: Image quality: Excellent. Prior cancer history: Unsure. Lungs and pleura: No pleural effusions. No pneumothorax. A few small pulmonary nodules measuring 0.4 cm. For example right upper lobe 0.3 cm, (4/51). A few calcified granuloma. No mass. No acute airspac e opacity. Mediastinum: Heart size is normal. Three-vessel coronary artery calcifications. No pericardial effusi on. No large vessel abnormality. No mediastinal adenopathy by size criteria. Chest wall and lower neck: Thyroid is unremarkable. No axillary or supraclavicular adenopathy by size . Bones: No aggressive osseous abnormality. ACDF. Upper Abdomen: Unremarkable. IMPRESSION: Lung RAD: 2 - Benign. Recommendation: Continue annual screening in 12 Months with LDCT Non-Lung Significant Findings: Coronary Arterial Calcification - Moderate or Severe. Reviewed by: Sid Augustine MD on 01/07/2024 2:58 PM PDT Approved by: Sid Augustine MD on 01/07/2024 2:58 PM PDT Station ID: [id number]
== END 2024-01-07 10:41 | disposition home or self-care (01) ==
LOC: DI 10:40
PROVIDERS: ATTEND Registered Nurse
DX: Z12.2 Encounter for screening for malignant neoplasm of respiratory organs (principal); I25.10 Atherosclerotic heart disease of native coronary artery without angina pectoris; Z87.891 Personal history of nicotine dependence

== ENCOUNTER 2024-02-02 14:17 | Outpatient (CLI) | payer MEDICARE, BC ==
--- NOTE | 2024-02-02 16:30 | XRAY Report ---
PROCEDURE: Foot 3+V RT INDICATIONS: RIGHT FOOT PAIN TECHNIQUE: 3 views of the foot were acquired. COMPARISON: None. FINDINGS: Bones: No fractures or dislocations. No suspicious bony lesions. First MTP joint space narrowing an d osteophytosis. Dorsal calcaneal enthesophyte. Soft tissues: No tibiotalar joint effusion. Achilles tendon appears normal. IMPRESSION: Moderate first MTP osteoarthritis. Reviewed by: Clark Guzman MD on 02/02/2024 4:29 PM PDT Approved by: Clark Guzman MD on 02/02/2024 4:29 PM PDT Station ID: [id number]
== END 2024-02-02 14:18 | disposition home or self-care (01) ==
LOC: DI 14:17
PROVIDERS: ATTEND Podiatrist
DX: M19.071 Primary osteoarthritis, right ankle and foot (principal)

== ENCOUNTER 2024-02-23 08:00 | Outpatient (CLI) | payer MEDICARE, BC | END 2024-02-23 23:59 | disposition home or self-care (01) | LOC: LAB.S 08:00 | PROVIDERS: ATTEND Emergency Medicine | DX: R09.81 Nasal congestion (principal) ==

== ENCOUNTER 2024-03-08 08:05 | Outpatient (CLI) | payer MEDICARE, BC ==
--- NOTE | 2024-03-08 11:23 | Ultrasound Report ---
PROCEDURE: Abdomen Complete INDICATIONS: THROMBOCYTOPENIA TECHNIQUE: Real-time scanning was performed of the abdominal and retroperitoneal organs, with image documentatio n. COMPARISON: None. FINDINGS: Liver: Normal size liver with mildly echogenic and coarse hepatic parenchyma. No visible mass. Appro priate direction of flow in the main portal vein. Gallbladder: No gallstones, sludge, wall thickening or pericholecystic edema. Biliary ducts: Intrahepatic bile ducts are non-dilated. Extrahepatic bile duct caliber measures 5.6 mm. Normal is 6-7 mm or less in diameter, or 10 mm or less post-cholecystectomy. Pancreas: Not visible due to extensive bowel gas. Spleen: Spleen is normal in size at 12.2 cm, and homogeneous in echotexture. Kidneys: Kidneys are normal in size and echotexture. Right kidney measures 11.7 cm long; left kidne y measures 11.3 cm long. No hydronephrosis or nephrolithiasis. No solid masses. No complex renal cy stic lesions which require follow-up. Simple cyst in the left upper pole measuring 1.3 cm. Aorta: Visualized aorta is normal in caliber at less than 3 cm. Only the mid to distal portion is v isible due to bowel gas. Iliacs: Proximal common iliac arteries are normal in caliber at less than 2.5 cm. IVC: Intrahepatic inferior vena cava is patent. Miscellaneous: No free abdominal fluid. IMPRESSION: Suboptimal imaging of a few organs due to bowel gas. Coarse, echogenic hepatic parenchyma suggesting steatosis or other intrinsic liver disease. Spleen size within normal limits. Reviewed by: Dede Peng MD on 03/08/2024 11:22 AM PDT Approved by: Dede Peng MD on 03/08/2024 11:22 AM PDT Station ID: [id number]
== END 2024-03-08 08:06 | disposition home or self-care (01) ==
LOC: DI 08:05
PROVIDERS: ATTEND Internal Medicine Hematology & Oncology
DX: D69.6 Thrombocytopenia, unspecified (principal)

== ENCOUNTER 2024-03-27 13:35 | Emergency (ER) | payer MEDICARE, BC ==
--- NOTE | 2024-03-27 13:42 | ED Physician Documentation ---
PD HPI SKIN - Stated complaint Stated Complaint: RASH ON TRUNK,BACK PX - Chief complaint Chief Complaint: Wound - History obtained from History obtained from: Patient - History of Present Illness Timing - onset: How many days ago (2) Timing - duration: Days (2) Timing - details: Gradual onset, Still present (had pain around left side of mid back wrapping aorund left side to abd/umbilical area. Pain worsening then rash started yesterday, worse today.) Location: Abdomen, Back Quality / character: Painful, Discolored, Vesicular, Swelling Associated symptoms: No: Fever, N/V/D Similar symptoms before: Has not had sx before Review of Systems Constitutional: denies: Fever, Chills Skin: reports: Rash Neurologic: denies: Focal weakness, Numbness PD PAST MEDICAL HISTORY - Past Medical History Past Medical History: Yes Cardiovascular: Hypertension, High cholesterol, Coronary artery disease, Atrial fibrillation, Other Respiratory: Sleep apnea Endocrine/Autoimmune: None GI: GERD, Colon polyps : Other HEENT: None Psych: None Musculoskeletal: Osteoarthritis, Scoliosis, Chronic back pain Derm: None - Past Surgical History Past Surgical History: Yes General: Appendectomy, Colonoscopy Ortho: Knee replacement, Spine surgery, Other Cardiovascular: Coronary stent, Cardiac catheterization, Angioplasty, Other HEENT: Cataracts - Present Medications Home Medications: Ambulatory Orders Medication Instructions Recorded Confirmed Zolpidem [Ambien] 5 mg PO HS 11/27/22 12/19/23 Clopidogrel Bisulfate [Plavix] 75 mg PO DAILY 04/28/23 12/19/23 Gabapentin [Neurontin] 600 mg PO HS 06/09/23 12/19/23 Aspirin [Cherry Aspirin] 81 mg PO DAILY 12/19/23 12/19/23 Atorvastatin Calcium 40 mg PO DAILY 12/19/23 12/19/23 Doxazosin [Cardura] 4 mg PO DAILY 12/19/23 12/19/23 Famotidine [Acid-Pep] 20 mg PO DAILY 12/19/23 12/19/23 Metoprolol Succinate [Toprol Xl] 50 mg PO DAILY 12/19/23 12/19/23 Multivitamin 1 each PO DAILY 12/19/23 12/19/23 [place]-3/Dha/Epa/Fish Oil [Fish Oil 1 each PO DAILY 12/19/23 12/19/23 1,000 mg Softgel] Rivaroxaban [Xarelto] 20 mg PO DAILY #30 tablet 12/22/23 Amitriptyline [Elavil] 25 mg PO BID #20 tablet 03/27/24 Lidocaine Patch 5% [Lidoderm Patch] 1 patch TOP DAILY PRN #10 patch 03/27/24 Oxycodone HCl/Acetaminophen 1 each PO Q6H PRN #20 tablet 03/27/24 [Percocet 5-325 mg Tablet] Valacyclovir HCl [Valtrex] 1,000 mg PO TID #20 tablet 03/27/24 dexAMETHasone [Decadron] 4 mg PO DAILY #5 tablet 03/27/24 - Allergies Allergies/Adverse Reactions: Allergies Allergy/AdvReac Type Severity Reaction Status Date / Time No Known Drug Allergies Allergy Verified 03/27/24 13:38 - Social History Does the pt smoke?: No Smoking Status: Never smoker Does the pt drink ETOH?: Yes Does the pt have substance abuse?: No - Immunizations Immunizations are current?: Yes PD ED PE NORMAL - Vitals Vital signs reviewed: Yes - General General: Alert and oriented X 3, Well developed/nourished - Neck Neck: Supple, no meningeal sign, No adenopathy - Cardiac Cardiac: RRR, No murmur - Respiratory Respiratory: Clear bilaterally - Abdomen Abdomen: Normal bowel sounds, Soft, No organomegaly, Other (there is a band of rash that is very tender left side starting adjacent to T10 level and wrapping around to umbilical area. does not cross midline. No tenderness above nor below the band area. Patchy red rash with vesibcles. ) Results - Vitals Vitals: Vital Signs - 24 hr 03/27/24 13:38 Temperature 36.5 C Heart Rate 76 Respiratory 16 Rate Blood Pressure 121/70 O2 Saturation 97 Oxygen O2 Source Room air PD Medical Decision Making - ED course Complexity details: considered differential (onset pain then rash and increased pain left back to abd in band like pattern, that is patchy red base with clusterd small vesicles. No pustules noted. c/w shingles. ), d/w patient Departure - Departure Disposition: 01 Home, Self Care Clinical Impression: Acute herpes zoster neuropathy Condition: Stable Record reviewed to determine appropriate education?: Yes Instructions: ED Shingles Follow-Up: PAMELA SUAREZ ARNP [Primary Care Provider] - Prescriptions: dexAMETHasone [Decadron] 4 mg PO DAILY #5 tablet Amitriptyline [Elavil] 25 mg PO BID #20 tablet Lidocaine Patch 5% [Lidoderm Patch] 1 patch TOP DAILY PRN #10 patch PRN Reason: pain Oxycodone HCl/Acetaminophen [Percocet 5-325 mg Tablet] 1 each PO Q6H PRN #20 tablet PRN Reason: pain Valacyclovir HCl [Valtrex] 1,000 mg PO TID #20 tablet Comments: This looks and acts like shingles. Will treat it as such. Typically will use a combination of antiviral as well as anti-inflammatory and also medication to help with nerve irritation pain/neuropathy to lessen the degree and duration of the outbreak. Commonly this can last for several weeks. For the pain itself, it as an Tylenol 500 to 650 mg 4 times daily regularly for the next week or so. You can also try lidocaine patches at the base of the rash near the spine and see if that helps along the nerve pathway. And then to that add oxycodone/acetaminophen for worse pain. Realized the pain medicines can be constipated so a little stool softener is appropriate as well. I sent your prescriptions to the [facility] in [place]. Follow-up with your primary care. I am prescribing a short course of narcotic pain medication for you. These are potentially dangerous and addictive medications that should be used carefully. These medications may constipate you. Take an xkbt-gma-evtqhwt stool softener such as docusate twice daily with plenty of water while taking these medications. If you go 24 hours without a bowel movement, take ypst-gyt-qemblap MiraLAX, per package instructions. Do not drink or drive while taking these medications. If you received narcotic or sedating medications while in the emergency department do not drive for 24 hours. Store this medication in a safe, secure place and out of reach of children. It is a violation of federal law to give or sell this medication to another person or to use in a manner other than prescribed. The ED will not refill narcotic prescriptions, including prescriptions lost or stolen. You can dispose of unwanted medications at the [facility]'s office or at several pharmacies such as [facility]. Forms: PCP List Discharge Date/Time: 03/27/24 14:37
[2024-03-27 13:44] VITALS: BP 121/70; O2SAT 97
[2024-03-27] MEDS: valACYclovir 500 MG TABLET PO STA (14:32)
[2024-03-27] MEDS: oxyCODONE 5 MG TABLET PO STA (14:32)
[2024-03-27] MEDS: dexAMETHasone 4 MG TABLET PO STA (14:32)
== END 2024-03-27 14:37 | disposition home or self-care (01) ==
LOC: ED 13:35
DX: B02.9 Zoster without complications (principal)
CPT/HCPCS: 99283; 99284; A9270; J8540

== ENCOUNTER 2024-06-07 22:47 | Emergency (ER) | payer MEDICARE, BC ==
--- NOTE | 2024-06-08 00:05 | ED Physician Documentation ---
History of Present Illness - Stated complaint Stated Complaint: LT FOOT INJ - Chief complaint Chief Complaint: Ext Problem - History obtained from History obtained from: Patient - Additonal information Additional information: HPI from patient. Patient was seen by his lube technician earlier in the day today for ingrown toenail of both great toes. He says part of the toenail on both of his great toes were excised on that visit. He presents at this time due to persistent bleeding through the dressing on the left great toe over the past few hours. Patient's prescription medications include clopidogrel and Xarelto for atrial fibrillation. PD PAST MEDICAL HISTORY - Past Medical History Past Medical History: Yes Cardiovascular: Hypertension, High cholesterol, Coronary artery disease, Atrial fibrillation, Other Respiratory: Sleep apnea Endocrine/Autoimmune: None GI: GERD, Colon polyps : Other HEENT: None Psych: None Musculoskeletal: Osteoarthritis, Scoliosis, Chronic back pain Derm: None - Past Surgical History Past Surgical History: Yes General: Appendectomy, Colonoscopy Ortho: Knee replacement, Spine surgery, Other Cardiovascular: Coronary stent, Cardiac catheterization, Angioplasty, Other HEENT: Cataracts - Present Medications Home Medications: Ambulatory Orders Medication Instructions Recorded Confirmed Zolpidem [Ambien] 5 mg PO HS 11/27/22 12/19/23 Clopidogrel Bisulfate [Plavix] 75 mg PO DAILY 04/28/23 12/19/23 Gabapentin [Neurontin] 600 mg PO HS 06/09/23 12/19/23 Aspirin [[place]odge Aspirin] 81 mg PO DAILY 12/19/23 12/19/23 Atorvastatin Calcium 40 mg PO DAILY 12/19/23 12/19/23 Doxazosin [Cardura] 4 mg PO DAILY 12/19/23 12/19/23 Famotidine [Acid-Pep] 20 mg PO DAILY 12/19/23 12/19/23 Metoprolol Succinate [Toprol Xl] 50 mg PO DAILY 12/19/23 12/19/23 Multivitamin 1 each PO DAILY 12/19/23 12/19/23 [place]-3/Dha/Epa/Fish Oil [Fish Oil 1 each PO DAILY 12/19/23 12/19/23 1,000 mg Softgel] Rivaroxaban [Xarelto] 20 mg PO DAILY #30 tablet 12/22/23 Amitriptyline [Elavil] 25 mg PO BID #20 tablet 03/27/24 Lidocaine Patch 5% [Lidoderm Patch] 1 patch TOP DAILY PRN #10 patch 03/27/24 Oxycodone HCl/Acetaminophen 1 each PO Q6H PRN #20 tablet 03/27/24 [Percocet 5-325 mg Tablet] Valacyclovir HCl [Valtrex] 1,000 mg PO TID #20 tablet 03/27/24 dexAMETHasone [Decadron] 4 mg PO DAILY #5 tablet 03/27/24 - Allergies Allergies/Adverse Reactions: Allergies Allergy/AdvReac Type Severity Reaction Status Date / Time No Known Drug Allergies Allergy Verified 06/07/24 22:50 - Social History Does the pt smoke?: No Smoking Status: Never smoker Does the pt drink ETOH?: Yes Does the pt have substance abuse?: No - Immunizations Immunizations are current?: Yes PD ED PE NORMAL - Vitals Vital signs reviewed: Yes - General General: Alert and oriented X 3, No acute distress, Well developed/nourished PD ED PE EXPANDED - Extremities Feet visual: 1 - tenderness (minimal TTP; active brisk bleeding. a few millimeters of the medial edge of the nail has been excised) Results - Vitals Vitals: Vital Signs - 24 hr 06/07/24 06/08/24 22:50 02:40 Temperature 36 C L 36.5 C Heart Rate 68 72 Respiratory 16 16 Rate Blood Pressure 149/95 H 129/88 H O2 Saturation 97 99 Oxygen O2 Source Room air PD Medical Decision Making - ED course Complexity details: considered differential, d/w patient ED course: There is only a small amount of blood on the dressing on the right great toe (not soaked) and thus this is kept in place. TXA is applied topically (directly onto the site of bleeding of the left great toe) as well as on the gauze that is then placed over the site of bleeding. Dressing is applied. Unfortunately, this dressing gradually soaked through with more bleeding. This was then removed. The process was repeated (TXA directly to the site of bleeding as well as the gauze that was reapplied), a new dressing was placed but nasal clamps were then put in place to apply continuous pressure to the site. On recheck, the nasal clamps are removed and the dressing is taken back down and there is complete hemostasis. I then applied 2 layers of Dermabond to minimize risk of rebleeding. A new dressing was applied. The patient was then placed in a post-operative shoe to minimize movement of the foot when he ambulates, and he is provided crutches so that he can minimize weight-bearing. Return precautions are reviewed. I advised him to contact his lube technician when the office is open to arrange for a follow-up/reevaluation appointment. Departure - Departure Disposition: 01 Home, Self Care Clinical Impression: Post-op bleeding Qualifiers: Surgical complication system/body Area: skin Procedure type: dermatologic Qualified Code(s): L76.21 - Postprocedural hemorrhage of skin and subcutaneous tissue following a dermatologic procedure Condition: Good Instructions: ED Wound Check Post Op Bleeding Comments: We were able to get the bleeding of your left toe to stop using a combination of topical application of a clotting agent (TXA), pressure dressings, and two layers of tissue adhesive ("glue"). Contact your lube technician when the office opens later this morning to arrange for follow-up/reevaluation of the toe. Discharge Date/Time: 06/08/24 02:50
[2024-06-08] MEDS: TRANEXAMIC ACID 1,000 MG/10 ML VIAL NAS STA (01:02)
[2024-06-08 02:47] VITALS: BP 129/88; O2SAT 99
== END 2024-06-08 02:50 | disposition home or self-care (01) ==
LOC: ED 22:47
DX: L76.21 Postprocedural hemorrhage of skin and subcutaneous tissue following a dermatologic procedure (principal)
CPT/HCPCS: 99282; 99283

== ENCOUNTER 2024-06-09 10:43 | Outpatient (CLI) | payer MEDICARE, BC ==
--- NOTE | 2024-06-09 11:22 | Sleep Patient Instructions ---
Sleep Center Visit Summary - Patient Visit Information Reason for Visit: Annual follow-up - Patient Instructions Additional Instructions: You will continue with CPAP therapy with pressure set at 10-16 cmH2O. A prescription for Zolpidem 5 mg as needed for insomnia. Please follow up with the sleep care office in 1 year. - Clinic Information Contact: [facility] [address] [place] [id number] [email or web address] T: [phone]
--- NOTE | 2024-06-09 11:36 | SLEEP CARE CONSULTATION ---
Information from patient questionnaire entered by Shila Bhardwaj. I have reviewed and concur with the information entered by Shila Bhardwaj. This document represents the service I personally performed and the decisions made by , Anastasiya Drummond ARNP. History of Present Illness Service Date and Time: 06/09/2024 1043 Previous diagnosis: Moderate, Obstructive Sleep Apnea-Hypopnea Syndrome AHI: 21.9 Reason for follow up: annual (Last seen 05/2023) Equipment type: CPAP (RESMED Airsense 10, s/u 06/2022; SD NEEDED FOR DOWNLOAD AND FOR CHANGES) Equipment obtained from: Other (online as needed) Mask style: Nasal pillows Mask brand: Resmed ([id number]) Backup mask available: No Last cushion change: 1 month Prior sleep studies: Yes Year and Where: has had 3 different studies over 20 years ago Type of Sleep Study: Polysomnography (TITRATION STUDY F/U) HPI additional information: GAETANO SINGLETARY was diagnosed to have moderate, AHI 21.9, obstructive sleep apnea-hypopnea syndrome and returned today for CPAP therapy annual follow-up. Sleep Study - Results Type of Sleep Study: Polysomnography (TITRATION STUDY F/U) Prior sleep studies: Yes Year and Where: has had 3 different studies over 20 years ago CPAP Compliance Data - Data Reviewed with Patient Average duration of nightly device use: 7 h 6 mins Compliance rate %: 86 (84/90 days used) Current pressure setting (cmH2O): 10 - 16 (avg 13.5) Average residual AHI: 15.4 (unknown 9.8) Central apnea: 1.9 Obstructive apnea: 1.9 Hypopnea: 1.7 Average large leak: 20.2 L/min Subjective Patient concerns: reports: dry mouth, nose, throat (drink at bedside helps). denies: aerophagia, mask discomfort, air blowing in eyes, mask leak noise, condensation in mask/hose, nasal congestion, epistaxis Observed to snore while using device: No Current pressure setting perceived as: comfortable On therapy, patient: reports: sleeping better, awakening more refreshed, being more awake and alert during the day, more rested overall. denies: drowsiness while driving Initial [place] Sleepiness Scale score: 4 (04/25/2022) Current [place] Sleepiness Scale score: 5 (06/09/24) Allergies and Home Medications Known drug allergies: No Drug allergies reviewed: Yes Home medication list reviewed: Yes (no changes) Allergy and home medication list: Allergies No Known Drug Allergies Allergy (Verified 06/07/24 22:50) Review of Systems Review of systems same as previous: No (sched for ablation for Afib; basal cell carcinoma on chest, removed) Physical Exam Vital signs obtained and entered by: Anastasiya Persaud NP Blood Pressure: 118/63 Cuff size: long (right arm) Heart Rate: 75 O2 Saturation: 96 Height: 5 ft 8 in Weight: 179 lb 6.4 oz Body Mass Index: 27.2 BMI Classification: Overweight Impression and Plan 1. Obstructive Sleep Apnea-Hypopnea Syndrome, moderate, with good treatment compliance and fair apnea control with elevated residual AHI. On CPAP therapy, the patient has better sleep quality and is more rested overall. He has significant improvement of his sleep apnea, however the data shows mildly elevated residual AHI. His average large leaks are 20.2 L/min and his residual AHI affected by unknown events at 9.8. It appears that his residual AHI is falsely elevated and no pressure adjustments will be made today. Patient's apnea severity and rationale for treatment to reduce apnea, improve sleep quality and reduce cardiovascular and cerebrovascular events was reviewed. I also reviewed the benefit of consistent device use of CPAP for hypertension, cardiac disease. 2. Overweight, unspecified. Currently patients BMI is 27.2. Obesity increases the risk of apnea, CPAP pressure requirements and overall health risks especially cardiovascular and diabetes. Thus patient is advised to maintain healthy weight. 3. Insomnia, sleep maintenance. He continues to have 3-4 wake-ups a few times a week and is unable to go back to sleep. He requests a sleep aid and states he only needs to use the medication 1-2 times a month. I have prescribed it to him in the past. I will give him a prescription for zolpidem 5 mg as needed for sleep with no refills. He has taken this before and has not had any adverse effects in the past. * Continue auto CPAP pressure at 10-16 cmH2O * Zolpidem 5 mg by mouth, prn sleep * Notify me if snoring with mask or feeling that the pressure is too much or too little * Maintain healthy weight * Call this office if any problems using CPAP * Return for follow up in 12 months, or sooner if concerns arise Counseling Topics: Spare mask, Weight loss health impact Prescriptions: Other (Zolpidem prescription for insomnia) Follow up with Sleep Care in: 1 year Visit Type: In Office Time Spent with Patient (minutes): 26 Provider Statement: I spent 100% of the Face to Face Visit with the patient with greater than 50% spent counseling the patient and coordination of care.
[2024-06-09 11:42] VITALS: BP 118/63; O2SAT 96
== END 2024-06-09 10:44 | disposition home or self-care (01) ==
LOC: SC 10:43
PROVIDERS: ATTEND Nurse Practitioner Family
DX: G47.33 Obstructive sleep apnea (adult) (pediatric) (principal); E66.3 Overweight; Z68.27 Body mass index [BMI] 27.0-27.9, adult; G47.00 Insomnia, unspecified
CPT/HCPCS: 99213; G0463; 99212